=== PATIENT | female | born 1940 | race Asian ===

== ENCOUNTER → 2017-01-23 | Outpatient (CLI) | payer MEDICARE, OTHER ==
[~2017-01-23] MED LIST: AMLO2.5T2 PO; ATOR10TA84 PO; GABA-531 PO; GLIM2TAB3 PO; HYDR25TA PO; LOSA100T29 PO; METF500T7 PO; OMEP20CA10 PO; PROP10 PO; SITA100 PO
== END | disposition home or self-care (01) ==
LOC: RADPV 14:31
PROVIDERS: ATTEND Internal Medicine
DX: J44.9 Chronic obstructive pulmonary disease, unspecified (principal); I51.7 Cardiomegaly; I70.0 Atherosclerosis of aorta; M85.842 Other specified disorders of bone density and structure, left hand
CPT/HCPCS: 71020